=== PATIENT | male | born 1930 | race Caucasian/White ===

== ENCOUNTER 2018-10-06 08:20 | Emergency (ER) | payer OTHER ==
[~2018-10-06] VITALS: Ht 170.2 cm; Wt 79.4 kg
[2018-10-06] MEDS ORDERED: DOXAZOSIN MESYLA4 MG PO (08:46)
[2018-10-06] MEDS ORDERED: ZOCOR40 MG PO (08:46)
[2018-10-06] MEDS ORDERED: LOTREL 10-20 M1 EACH PO (08:47)
== END 2018-10-06 15:14 | disposition home or self-care (01) ==
LOC: ER 08:20
DX: K57.31 Diverticulosis of large intestine without perforation or abscess with bleeding (principal)